=== PATIENT | male | born 1985 | race Caucasian/White ===

== ENCOUNTER 2017-08-21 20:10 | Emergency (ER) | payer MEDICAID, OTHER ==
[2017-08-21 20:18] VITALS: BP 152/97; PULSE 74; RESP 18; TEMP 98.3
[2017-08-21] MEDS ORDERED: KETOROLAC 30 MG/ML 1 ML VIAL IM STA (21:29)
[2017-08-21] MEDS ORDERED: CLINDAMYCIN 150 MG/ML 4 ML VIAL IM STA (21:33)
--- NOTE | 2017-08-21 21:35 | ED ---
ENT HPI - General Chief complaint: Dental/Oral Stated complaint: dental pain & facial swelling Time Seen by Provider: 08/21/17 20:59 Source: patient, RN notes reviewed Mode of arrival: ambulatory Limitations: no limitations - History of Present Illness Initial comments: This is a 32-year-old male who presents to the emergency department with chief complaint of dental pain and swelling. Patient states that he was seen at the hospital in [place] earlier today and was prescribed clindamycin for a dental abscess. He states that he has taken 2 doses so far today. He also states that he has taken 3 Tylenol with codeine today because the pain is so severe. He states that throughout the day today he has noticed a significant increase in swelling to the right side of his face. He denies any fevers or chills. Denies chest pain or shortness of breath, abdominal pain, nausea or vomiting, dizziness or headache. - Related Data Home Medications Medication Instructions Recorded Confirmed Acetaminophen-Codeine 300-30mg 1 tab PO Q4HR PRN 08/21/17 08/21/17 [Tylenol w/codeine #3] Clindamycin HCl [Cleocin] 450 mg PO Q8HR 08/21/17 08/21/17 Ibuprofen [Motrin Ib] 800 mg PO TID PRN 08/21/17 08/21/17 Allergies Allergy/AdvReac Type Severity Reaction Status Date / Time Penicillins Allergy Rash/Hives Verified 08/21/17 20:30 Review of Systems ROS Statement: Those systems with pertinent positive or pertinent negative responses have been documented in the HPI. ROS Other: All systems not noted in ROS Statement are negative. Past Medical History Additional Past Medical History / Comment(s): Lichen Planus History of Any Multi-Drug Resistant Organisms: None Reported Additional Past Surgical History / Comment(s): eye surgery Past Anesthesia/Blood Transfusion Reactions: No Reported Reaction Past Psychological History: Anxiety, Depression Smoking Status: Current every day smoker Past Alcohol Use History: Rare Past Drug Use History: Marijuana General Exam - General Exam Comments Initial Comments: General: Awake and alert, well-developed; in no apparent distress. HEENT: Head atraumatic, normocephalic. Pupils are equal, round and reactive to light. Extraocular movements intact. Oropharynx moist without erythema or exudate. Poor dentition throughout. Tooth #28 is fractured. There is tenderness along the gumline with no areas of fluctuance noted. Right mandible is swollen and tender on palpation. Neck: Supple. Normal ROM. Cardiovascular: Regular rate and rhythm. No murmurs, rubs or gallops. Chest symmetrical. Respiratory: Lungs clear to auscultation bilaterally. No wheezes, rales or rhonchi. Normal respiratory effort with no use of accessory muscles. Musculoskeletal: Normal ROM, no tenderness bilateral upper and lower extremities. Ambulating normally. Skin: [place], warm and dry without rashes or lesions. Neurological: Alert and oriented x3. CN II-XII grossly intact. Speech is fluent and answers are appropriate. No focal neuro deficits. Psychiatric: Normal mood and affect. No overt signs of depression or anxiety noted. Limitations: no limitations Course Vital Signs 08/21/17 20:16 Temperature 98.3 F Pulse Rate 74 Respiratory 18 Rate Blood Pressure 152/97 O2 Sat by Pulse 98 Oximetry Medical Decision Making - Medical Decision Making This is a 32-year-old male who presents to the emergency department with chief complaint of dental pain and right-sided facial swelling. Patient was started on clindamycin for dental abscess today. He has taken 2 doses so far. He states that he has had an increase in swelling to the right side of his face and is experiencing severe pain. This case was discussed with attending physician, Dr. Ferreira who also evaluated the patient. Tooth #28 is fractured and had no areas of fluctuance are noted. Recommended attempting at draining the abscess, however patient declines at this time. He will be given a shot of clindamycin as well as Toradol. Educated patient that it takes approximately 48 hours for antibiotics to reach their peak. Recommended return to the emergency department if he develops any fevers or worsening in symptoms. Recommended continuing medications as prescribed. Vital signs are stable and patient is in no acute distress. He will be discharged home at this time. All questions answered. Disposition Clinical Impression: Dental abscess Disposition: HOME SELF-CARE Condition: Good Instructions: Dental Abscess (ED) Additional Instructions: Please continue taking clindamycin as was prescribed. May take ibuprofen 600 mg every 6 hours as needed for inflammation and pain. Please follow up with a dentist as soon as possible. Please follow up with primary care provider within 1-2 days. Return to emergency department if symptoms should worsen or any concerns arise. Is patient prescribed a controlled substance at d/c from ED?: No Referrals: None,Stated [Primary Care Provider] - 1-2 days Time of Disposition: 21:35
== END 2017-08-21 22:03 | disposition home or self-care (01) ==
LOC: EC 20:10
DX: K04.7 Periapical abscess without sinus (principal); S02.5XXA Fracture of tooth (traumatic), initial encounter for closed fracture; F17.200 Nicotine dependence, unspecified, uncomplicated; Z88.0 Allergy status to penicillin; X58.XXXA Exposure to other specified factors, initial encounter
CPT/HCPCS: 99283; 96372 ×2; J1885

== ENCOUNTER 2020-03-27 15:05 | Emergency (ER) | payer OTHER ==
[2020-03-27 15:16] VITALS: RESP 18
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
[2020-03-27] MEDS ORDERED: SODIUM CHLORIDE 0.9% 1,000 ML IV STA (15:27)
[2020-03-27] MEDS ORDERED: DIPH,PERTUS(ACELL)TETVAC-LF 0.5 ML VIAL IM ONE (15:27)
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
[2020-03-27 15:55] LABS: Basophils % (A) 0 %; Eosinophils # (A) 0.2 k/uL (0-0.7); Eosinophils % (A) 1 %; HGB 14.9 gm/dL (13.0-17.5); Lymphocytes # (A) 2.3 k/uL (1.0-4.8); Lymphocytes % (A) 9 %; MCHC 34.7 g/dL (31.0-37.0); MCV 95.1 fL (80.0-100.0); Mean Platelet Volume 7.8; Monocytes # (A) 0.8 k/uL (0-1.0); Monocytes % (A) 3 %; Neutrophils # (A) 20.8 k/uL (1.3-7.7); Neutrophils % (A) 86 %; Platelet Count 251 k/uL (150-450); RBC 4.52 m/uL (4.30-5.90); RDW 12.9 % (11.5-15.5); WBC 24.2 k/uL (3.8-10.6)
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
[2020-03-27 16:06] LABS: ALT 34 U/L (4-49); AST 46 U/L (17-59); African American GFR (CKD) >90 (>60 ml/min/1.73 sqM); Albumin 4.5 g/dL (3.5-5.0); Alcohol <10 mg/dL; Alkaline Phosphatase 83 U/L (38-126); Anion Gap 8 mmol/L; Blood Urea Nitrogen 16 mg/dL (9-20); Calcium 9.5 mg/dL (8.4-10.2); Carbon Dioxide 24 mmol/L (22-30); Chloride 105 mmol/L (98-107); Glucose 101 mg/dL (74-99); Non-African American GFR(CKD) >90 (>60 ml/min/1.73 sqM); Potassium 4.1 mmol/L (3.5-5.1); Sodium 137 mmol/L (137-145); Total Bilirubin 0.9 mg/dL (0.2-1.3); Total Protein 7.3 g/dL (6.3-8.2)
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
[2020-03-27 16:33] LABS: Appearance,Urine Clear (Clear); Bilirubin,Urine Negative (Negative); Blood,Urine Negative (Negative); Color,Urine Light Yellow; Glucose,Urine (UA) Negative (Negative); Ketones,Urine Negative (Negative); Leukocyte Esterase,Urine Negative (Negative); Nitrite,Urine Negative (Negative); Protein,Urine Negative (Negative); Specific Gravity,Urine 1.015 (1.001-1.035); Urobilinogen,Urine <2.0 mg/dL (<2.0)
[2020-03-27 16:40] LABS: Partial Thromboplastin Time 24.2 sec (22.0-30.0); Prothrombin Time 10.4 sec (9.0-12.0)
[2020-03-27 16:44] LABS: Amphetamine Screen,Urine Not Detected (NotDetected); Barbiturate Screen,Urine Not Detected (NotDetected); Benzodiazepines Screen,Urine Not Detected (NotDetected); Cocaine Screen,Urine Not Detected (NotDetected); Methadone Screen, Urine Not Detected (NotDetected); Opiate Screen,Urine Detected (NotDetected); Oxycodone Screen, Urine Not Detected (NotDetected); Phencyclidine Screen,Urine Not Detected (NotDetected); Tricyclic Antidepressant,Urine Not Detected (NotDetected); Urn Cannabinoid Scrn Detected (NotDetected)
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
[2020-03-27 19:20] VITALS: BP 139/93; PULSE 101; TEMP 98
== END 2020-03-27 19:05 | disposition home or self-care (01) ==
LOC: EC 15:05
DX: S62.231A Other displaced fracture of base of first metacarpal bone, right hand, initial encounter for closed fracture (principal); F12.10 Cannabis abuse, uncomplicated; R00.0 Tachycardia, unspecified; S60.511A Abrasion of right hand, initial encounter; S20.419A Abrasion of unspecified back wall of thorax, initial encounter; S30.811A Abrasion of abdominal wall, initial encounter; F60.9 Personality disorder, unspecified; Z23 Encounter for immunization; F41.9 Anxiety disorder, unspecified; F32.9 Major depressive disorder, single episode, unspecified; Z79.899 Other long term (current) drug therapy; Z88.0 Allergy status to penicillin; V43.52XA Car driver injured in collision with other type car in traffic accident, initial encounter; Y93.89 Activity, other specified; Y92.410 Unspecified street and highway as the place of occurrence of the external cause
CPT/HCPCS: 29125; 36415; 70450; 71045; 71260; 72125; 72170; 74177; 80053; 80306; 80320; 81003; 84484; 85025; 85610; 85730; 86850; 86900; 86901; 90471; 90715; 96360; 99285

== ENCOUNTER → 2024-03-18 | Outpatient (CLI) | payer BC ==
--- NOTE | 2024-04-01 10:59 | P.HOLTER ---
72 HOUR HOLTER MONITOR : INDICATION: Palpitations, lightheadedness, TIA nonspecified START DATE: 03/18/2024 END DATE: 03/20/2024 Patient was moitored for 2 days 7 hours 32 minutes FINDINGS: Max HR: 167 BPM Min HR: 69 BPM Average HR: 101 BPM 52% tachycardia burden Supra-Ventricular ectopic burden: 0.13 % Ventricular ectopic burden: 0.44% There were no signficant atrial fibrillation, atrial flutter, or sustained ventricular tachycardia episodes. There were no high-grade AV blocks There were no significant pauses greater than 2 seconds. CONCLUSION: Predominantly sinus tachycardic with average heart rate around 101 bpm Otherwise nonrevealing extended Holter monitor Please correlate clinically. Parminder Golden MD, FACC, RPVI Thank you for allowing [facility] to participate in this patient's care. Feel free to reach out in case of any followup questions.
== END | disposition home or self-care (01) ==
LOC: RADECHMAIN 07:26
PROVIDERS: ATTEND Family Medicine
DX: R00.0 Tachycardia, unspecified (principal); G45.9 Transient cerebral ischemic attack, unspecified
CPT/HCPCS: 93225